=== PATIENT | male | born 1970 | race Hispanic/Latino ===

== ENCOUNTER → 2018-06-09 | Day surgery (SDC) | payer OTHER ==
[~2018-06-09] MED LIST: ANUSOL-HC25 MG RC; CALCIUM; FENTANYL CITRATE/PF 100MCG/2 ML INJ ONE; HYOSCYAMINE SULFATE 0.5 MG/ML AMP ONE; KETAMINE HCL INJ 50 MG/ML 10 ML VIAL ONE; LIDOCAINE HCL 2% LOCAL INJ 5 ML SDV VIAL INJ ONE; MIDAZOLAM HCL 2 MG/2 ML VIAL ONE; PRAVASTATIN SOD40 MG PO; PROPOFOL IV EMULSION 10 MG/ML 50 ML VIAL ONE; SURFAK240 MG PO; SYNTHROID88 MCG PO; VITAMIN D
--- NOTE | 2018-06-09 11:55 | Operative Report ---
DATE OF PROCEDURE: June 09, 2018 REFERRING PHYSICIAN: Dr. Declan Chandler. PROCEDURE PERFORMED: Esophagogastroduodenoscopy with biopsies and colonoscopy with polypectomy. INDICATIONS FOR ESOPHAGOGASTRODUODENOSCOPY: History of heartburn, indigestion. INDICATIONS FOR COLONOSCOPY: Rectal pain. MEDICATIONS: Patient was done under MAC. Please see anesthesiologist's note. PROCEDURE: Patient in left lateral decubitus position. Flexible fiberoptic Olympus gastroscope was introduced into the esophagus under direct visualization without any difficulty. There was a nodule noted in the mid esophagus suspicious for squamous papilloma and that was biopsied. The mucosa overlying the distal esophagus revealed some patchy erythema. The scope was then advanced with ease into the stomach. Mucosa overlying the antrum and the body revealed some patchy areas of erythema and low-grade to moderate edema and biopsies were obtained, sent to stain for H. pylori. Pylorus appeared to be of normal contour and shape, was intubated with ease and the scope was advanced all the way to the second portion of the duodenum. The scope was then withdrawn slowly. Mucosa overlying the proximal second portion appeared to be within normal limits. There were some patchy areas of inflammatory changes in the duodenal bulb. The scope was then withdrawn back into the stomach and retroflexed and mucosa overlying the fundus and the cardia appeared to be within normal limits. The scope was then straightened out. It was subsequently withdrawn. Patient tolerated the procedure well. IMPRESSION 1. Rule out squamous papilloma, mid esophagus. 2. Distal esophagitis. 3. Gastritis biopsied. Biopsies sent to stain for Helicobacter pylori. PLAN: Follow up histology. Initiate Protonix 40 mg 1 p.o. q.a.m. a.c. Patient was then turned around. After adequate lubrication of the anal canal, flexible fiberoptic Olympus colonoscope was inserted into the rectum with ease and advanced all the way to the cecum. The scope was then withdrawn slowly. Mucosa overlying the cecum appeared to be within normal limits. One polyp was hot biopsied from the ascending colon. Two polyps were snared from the transverse colon. The descending appeared to be within normal limits. Two polyps were hot biopsied from the sigmoid colon. The rectum appeared to be within normal limits. The scope was then retroflexed into the distal rectum and small internal hemorrhoids were noted none of which was actively bleeding. The scope was then straightened out, was subsequently withdrawn. Patient tolerated the procedure well. IMPRESSION 1. Ascending colon polyp, hot biopsied. 2. Transverse colon polyps times 2, snared. 3. Sigmoid colon polyps times 2, hot biopsied. 4. Internal hemorrhoids, none actively bleeding. PLAN: Follow up histology. Initiate high-fiber low-fat diet. Initiate high-fiber supplement. Start hydrocortisone suppositories 25 mg b.i.d. times 10 days, then p.r.n.. Patient will need a followup colonoscopy in 3 years. Job#: [id number] [facility] cc:DR. DECLAN CHANDLER
== END | disposition home or self-care (01) ==
LOC: ENDO 08:00
PROVIDERS: ATTEND Internal Medicine Gastroenterology
DX: K62.89 Other specified diseases of anus and rectum (principal); D12.2 Benign neoplasm of ascending colon; D12.3 Benign neoplasm of transverse colon; D13.0 Benign neoplasm of esophagus; K29.70 Gastritis, unspecified, without bleeding; K20.9 Esophagitis, unspecified; K64.8 Other hemorrhoids; G47.33 Obstructive sleep apnea (adult) (pediatric); E03.9 Hypothyroidism, unspecified; E78.5 Hyperlipidemia, unspecified; G70.00 Myasthenia gravis without (acute) exacerbation; Z01.810 Encounter for preprocedural cardiovascular examination; Z68.32 Body mass index [BMI] 32.0-32.9, adult
CPT/HCPCS: 43239; 45384; 45385; 93005; J1980; J2001; J2250; 45378